=== PATIENT | female | born 1935 | race Caucasian/White ===

== ENCOUNTER 2020-08-20 12:16 | Outpatient (NON) | payer MEDICARE, SELFPAY ==
[2020-08-21 19:53] LABS: SARS-CoV-2 RNA PCR Negative
== END 2020-08-20 12:17 ==
PROVIDERS: PCP Internal Medicine; Visit Provider Internal Medicine
DX: Z20.828 Contact with and (suspected) exposure to other viral communicable diseases (principal); R19.7 Diarrhea, unspecified; R06.02 Shortness of breath
CPT/HCPCS: 87635; C9803; U0003

== ENCOUNTER → 2020-11-04 13:02 | Outpatient (CLI) | payer MEDICARE, SELFPAY ==
--- NOTE | ~2020-11-04 | CT_ITS ---
EXAMINATION:CT diagnostic chest w con DATE: 11/04/2020 13:30 INDICATION: Pulmonary embolism and infarction. TECHNIQUE: Computed tomography (CT) of the chest was performed with 100 mL Omnipaque 350 intravenous contrast. Automated exposure control and iterative reconstruction technique were employed. The dose-l ength product (DLP) was 566.50 mGy-cm. COMPARISON: Chest CT 03/24/2016 FINDINGS: There is mild scarring at the lung apices. There is mild atelectasis bilaterally. There is mild emphysema. No pleural effusion. Calcified right hilar and mediastinal lymph nodes are consistent with old granulomatous disease. There is a moderate-sized sliding hiatal hernia. The heart size is n ormal. There is no pulmonary embolus. There is a 1.5 cm nodule in left thyroid lobe, likely needing n o further evaluation given the patient's age. There are bridging endplate osteophytes at multiple lev els in the spine, consistent with diffuse idiopathic skeletal hyperostosis (DISH). IMPRESSION: 1. No pulmonary embolus. Sensitivity is mildly decreased by motion artifact. 2. Mild emphysema. 3. Moderate-sized sliding hiatal hernia. Reviewed, dictated and finalized at location A. ERIZER FEEDER
[2020-11-04 13:22] LABS: Estimated Glomerular Filt Rate > 60
== END ==
PROVIDERS: PCP Internal Medicine; Visit Provider Internal Medicine
DX: I26.99 Other pulmonary embolism without acute cor pulmonale (principal); J43.9 Emphysema, unspecified; K44.9 Diaphragmatic hernia without obstruction or gangrene
CPT/HCPCS: 71260; Q9967